=== PATIENT | male | born 1965 | race Caucasian/White ===

== ENCOUNTER 2017-04-20 11:22 | Emergency (ER) | payer OTHER ==
[~2017-04-20] VITALS: Ht 172.7 cm; Wt 97.3 kg
[2017-04-20 12:04] VITALS: BP 124/82
[2017-04-20] MEDS ORDERED: SODIUM CHLORIDE FLUSH 10ML SYR IVF ONE (12:30)
[2017-04-20] MEDS ORDERED: SODIUM CHLORIDE 0.9% 1,000ML IVBOLUS ONE (12:30)
[2017-04-20] MEDS ORDERED: ONDANSETRON 2MG/ML, 2ML IVPush ONE (12:30)
[2017-04-20] MEDS ORDERED: ONDANSETRON 2MG/ML, 2ML ONE (12:34)
[2017-04-20 12:56] LABS: BASOPHILS # (AUTO) 0.01 x10^3/uL (0-0.1); BASOPHILS % (AUTO) 0 % (0-1); EOSINOPHILS # (AUTO) 0.13 x10^3/uL (0-0.4); EOSINOPHILS % (AUTO) 1 % (1-7); LYMPHOCYTES # (AUTO) 0.71 x10^3/uL (1-3.4); LYMPHOCYTES % (AUTO) 5 % (22-44); MD NO; MEAN CORPUSCULAR HEMOGLOBIN 31.1 pg (27.5-34.5); MEAN CORPUSCULAR HGB CONC 34.3 g/dL (33.2-36.2); MEAN CORPUSCULAR VOLUME 90.9 fL (81-97); MONOCYTES % (AUTO) 3 % (2-9); NEUTROPHILS # (AUTO) 14.61 x10^3/uL (1.8-6.8); NEUTROPHILS % (AUTO) 92 % (42-75); PLATELET COUNT 236 x10^3/uL (130-400); RED BLOOD COUNT 5.17 x10^6/uL (4.38-5.82); RED CELL DISTRIBUTION WIDTH 14.8 % (9.4-14.8)
[2017-04-20 13:08] LABS: ALANINE AMINOTRANSFERASE 65 U/L (12-78); ANION GAP 8 mmol/L (5-15); CALCIUM 8.7 mg/dL (8.5-10.1); CHLORIDE 108 mmol/L (98-107); CREATININE 1.03 mg/dL (0.7-1.3)
[2017-04-20 13:11] LABS: ALKALINE PHOSPHATASE 45 U/L (45-117); TOTAL PROTEIN 8.4 g/dL (6.4-8.2)
[2017-04-20 13:12] LABS: ACETONE, SERUM Negative (Negative)
== END 2017-04-20 14:32 | disposition home or self-care (01) ==
LOC: ED 12:22
DX: R19.7 Diarrhea, unspecified (principal); R11.2 Nausea with vomiting, unspecified
CPT/HCPCS: 36415; 80053; 82010; 83605; 85025; 96361; 96374; 99285; J2405; J7030